=== PATIENT | male | born 1960 | race Two or more races ===

== ENCOUNTER → 2025-01-10 | Outpatient (CLI) | payer MEDICAID, SELFPAY ==
--- NOTE | 2025-01-10 09:08 | XR_ITS ---
Examination: Esophagram standard Upright PA chest single view Upright soft tissue lateral neck single view Fluoroscopy 11 spot fluoroscopic films of the esophagus Date and time: January 10, 2025 0916 hours INDICATIONS: Difficulty swallowing 10 years TECHNIQUE AND FINDINGS: Significant esophageal dysmotility Lack of primary peristaltic waves. Numerous secondary and tertiary esophageal contractions, esophageal spasm Small sliding esophageal hernia Moderate intermittent gastroesophageal reflux No esophageal ulcerations Upright PA chest single view demonstrates cardiac leads satisfactory position lungs are clear Normal epiglottis on the soft tissue lateral neck IMPRESSION: Severe esophageal dysmotility Moderate intermittent gastroesophageal reflux Fluoroscopy 10 seconds 11 spot fluoroscopic films of the esophagus
== END | disposition home or self-care (01) ==
LOC: CDIM 08:52
PROVIDERS: PCP Physician Assistant; Referring Provider Physician Assistant; Visit Provider Physician Assistant
DX: K21.9 Gastro-esophageal reflux disease without esophagitis (principal); K22.4 Dyskinesia of esophagus
CPT/HCPCS: 74220; A4649